=== PATIENT | male | born 1995 | race African-American/Black ===

== ENCOUNTER 2016-03-28 14:14 | Emergency (ER) | payer OTHER ==
[~2016-03-28] VITALS: Ht 180.3 cm; Wt 70.3 kg
[2016-03-28 14:19] VITALS: TEMP 36.9; Ht 180.3 cm; Wt 70.3 kg
--- NOTE | 2016-03-28 15:11 | EMERGENCY ROOM VISIT NOTE ---
History First contact with patient: 14:49 Chief Complaint: HEADACHE Stated Complaint: MIGRAINE W/AURA History of Present Illness The patient is a 20 year old male who presents to the Emergency Room with complaints of a results migraine headache which occurred this morning. The patient states that he woke up this morning with a severe migraine headache. He had 3-4 episodes of vomiting. He reports the headache was focused in the left frontal region. The pain was rated a 7/10. He states that prior to the onset, he did have blurred vision, which is his usual aura. He states that he was able to sleep and the migraine has completely resolved at this time. He denies any symptoms currently. He did not take any medications for the symptoms. He reports that he has a history of migraine headaches and had an MRI performed at home which was normal. He was previously prescribed medication , but states it did not work for him. His migraines usually resolve after sleeping. He reports this headache was not the worst headache of his life and did feel similar to typical migraines. He states that he came here because his girlfriend was worried about him and made him come. He denies any numbness, weakness, slurred speech, confusion, syncope, neck pain, recent illness or fevers/chills. Review of Systems A complete 10-point Review of Systems was discussed with the patient, with pertinent positives and negatives listed in the History of Present Illness. All remaining Review of Systems questions can be considered negative unless otherwise specified. Social History Smoking Status: Never Smoker Current/Historical Medications Scheduled Ondasetron Odt (Zofran Odt), 4 MG SL Q6H Allergies Coded Allergies: No Known Allergies (Unverified , 03/28/16) Physical Exam Vital Signs Date Time Temp Pulse Resp B/P Pulse Ox O2 Delivery O2 Flow Rate FiO2 03/28/16 15:15 68 16 123/78 97 Room Air 03/28/16 14:19 36.9 64 17 114/66 97 Room Air Physical Exam VITALS: Vitals are noted on the nurse's note and reviewed by myself. Vital signs stable. GENERAL: This is a 20-year-old male, in no acute distress, nondiaphoretic, well- developed well-nourished. SKIN: Capillary reflex less than 2 seconds. HEENT: Normocephalic. PERRLA. EOMI. Nares patent. Mucous membranes moist. Neck is supple without nuchal rigidity. HEART: Regular rate and rhythm without murmurs gallops or rubs. LUNGS: Clear to auscultation bilaterally without wheezes, rales or rhonchi. No retractions or accessory muscle use. ABDOMEN: Positive bowel sounds x 4. Soft, nontender. MUSCULOSKELETAL: Full range of motion in all extremities. Strength 5/5 throughout. NEURO: Patient was alert and oriented to person place and time. Normal sensation to light and sharp touch. Deep tendon reflexes 2+ throughout. No focal neurological deficits. Medical Decision & Procedures Medical Decision The differential diagnosis includes acute intracranial bleed, meningitis, encephalitis, mass or mass effect, sinusitis, infection, tumor, headache, temporal arteritis and carbon monoxide exposure, and migraine. The patient was evaluated as above. He presents with a resolved migraine. The patient has had workup as an outpatient before including MRI. He does report that his migraine today was similar to previous migraines and he did not have any concerning symptoms. I do not suspect subarachnoid hemorrhage or other cause of the patient's headache. He is asymptomatic on presentation to the emergency department and will not need further treatment. I did reassure the patient and his girlfriend that his history was not concerning for any other cause of the patient's headache. I do not feel he needs further workup at this time. He was given a prescription for Zofran to use for nausea with future headaches. He was encouraged to follow-up with a local neurologist and given follow-up information. He will return if he develops any new/concerning symptoms. He verbalized understanding of my assessment and treatment plan and was discharged home in good condition. Impression Primary Impression: Migraines Departure Information Dispostion Home / Self-Care Condition GOOD Prescriptions Ondasetron Odt (ZOFRAN ODT) 4 Mg Tab 4 MG SL Q6H for Nausea, #24 TAB Prov: Ashley Vora .NURIS 03/28/16 Referrals [facility] (PCP) Khushi Smith D.O. Patient Instructions My [facility] Additional Instructions In the future, you may take Excedrin Migraine for your headaches. You have been prescribed Zofran to be used for any nausea or vomiting. Take as prescribed. You should follow-up with a neurologist regarding your headaches. You have been provided with the follow-up information for a local neurologist. Return to the emergency department if you develop the worst headache of your life, new onset numbness/weakness, a sudden "thunderclap" headache, or any other new/concerning symptoms. Problem Qualifiers Primary Impression: Migraines Migraine type: with aura Status migrainosus presence: without status migrainosus Intractability: not intractable Qualified Codes: G43.109 - Migraine with aura, not intractable, without status migrainosus
[2016-03-28 15:15] VITALS: BP 123/78; PULSE 68; O2SAT 97
[2016-03-28] MEDS ORDERED: ONDA4TAB10 SL (15:27)
== END 2016-03-28 15:37 | disposition home or self-care (01) ==
LOC: C.EDB 14:18 → C.EDD 15:37
DX: G43.109 Migraine with aura, not intractable, without status migrainosus (principal)